=== PATIENT | female | born 1995 | race Caucasian/White ===

== ENCOUNTER 2021-10-15 14:41 | Emergency (ER) | payer SELFPAY ==
[~2021-10-15] VITALS: Ht 154.9 cm; Wt 51.3 kg
[2021-10-15 14:44] VITALS: BP 142/76
[2021-10-15] MEDS ORDERED: NACL 0.9% 1,000 ML IV ONE ×2 (14:55→16:20)
[2021-10-15] MEDS ORDERED: ONDANSETRON 4 MG/2 ML VIAL IVP ONE (14:55)
[2021-10-15] MEDS ORDERED: KETOROLAC 15 MG/ML VIAL IVP ONE (14:55)
[2021-10-15 15:15] LABS: BASOPHILS % (AUTO) 0.2 % (0.0-2.0); EOSINOPHILS % (AUTO) 0.2 % (0.0-4.0); HEMATOCRIT 42.3 % (36-48); HEMOGLOBIN 14.7 g/dL (12.0-16.0); LYMPHOCYTES # (AUTO) 0.8 K/uL (2.5-16.5); MEAN CORPUSCULAR HEMOGLOBIN 31 pg (27-31); MEAN CORPUSCULAR HGB CONC 35 g/dL (33-37); MEAN CORPUSCULAR VOLUME 88.4 fL (80-94); MONOCYTES # (AUTO) 0.4 K/uL (0.8-1.0); MONOCYTES % (AUTO) 4.3 % (1.7-9.3); NEUTROPHILS % (AUTO) 87.3 % (42.2-75.2); PLATELET COUNT (AUTO) 322 K/uL (140-450); RED BLOOD CELL COUNT(AUTO) 4.79 MIL/uL (4.20-5.40); RED CELL DISTRIBUTION WIDTH 13.4 % (11.6-13.7); WHITE BLOOD COUNT (AUTO) 10.3 K/uL (4.8-10.8)
--- NOTE | 2021-10-15 15:15 | NUR ---
Labs drawn handed to CPT Anyi
--- NOTE | 2021-10-15 15:15 | NUR ---
PATIENT UNABLE TO PROVIDE URINE SAMPLE FOR HCG TEST, TORADOL HELD AT THIS TIME.
--- NOTE | 2021-10-15 15:22 | NUR ---
25 y/o female BIBA from home with c/o abd pain with nausea and vomiting. Patient stated "that vomiting started this morning after she smoked meth and had 2 glasses of wine." Patient states "its her first time doing meth and wants to know if it was laced." Medical History: PTSD NKDA Medication: zofran 4mg odt (en route)
[2021-10-15 15:30] LABS: ALBUMIN 4.9 g/dL (3.4-5.0); ANION GAP 22.3 (8-16); CARBON DIOXIDE 21.4 mmol/L (21-32); CREATININE 0.8 mg/dL (0.6-1.3); POTASSIUM 3.7 mmol/L (3.5-5.1); TOTAL BILIRUBIN 0.8 mg/dL (0.0-1.0)
[2021-10-15] MEDS ORDERED: MORPHINE SULFATE 4 MG/ML SYR IVP ONE (15:40)
--- NOTE | 2021-10-15 15:40 | NUR ---
25/F BIBA TO ED WITH C/O ABDOMINAL PAIN, NAUSEA AND VOMITING SINCE LAST NIGHT. PATIENT ADMITS TO USING METH AND CONSUMING 2 GLASSES OF WINE PRIOR TO PAIN BEGINNING. EMS REPORTS GIVING ZOFRAN PRIOR TO ARRIVAL TO ED WITH MILD RELIEF. PATIENT DENIES CP, SOB, COUGH, FEVERS OR URINARY SYMPTOMS.
--- NOTE | 2021-10-15 16:00 | NUR ---
PATIENT STATES STILL UNABLE TO PROVIDE URINE, DR. VARELA AWARE
[2021-10-15] MEDS ORDERED: HALOPERIDOL IM 5 MG/ML VIAL IVP ONE (16:20)
[2021-10-15] MEDS ORDERED: HALOPERIDOL IM 5 MG/ML VIAL IM ONE (16:30)
[2021-10-15] MEDS ORDERED: ONDA-188 PO (17:22)
[2021-10-15] MEDS ORDERED: METR-520 PO (17:22)
--- NOTE | 2021-10-15 17:43 | NUR ---
Patient was road tested. Patient is able to walk with steady gait without assistance.
--- NOTE | 2021-10-15 17:55 | NUR ---
Offered patient bus pass but she declined. Patient is using phone to call her dad and sister for a ride.
[2021-10-15 18:01] VITALS: BP 109/85
--- NOTE | 2021-10-15 18:01 | NUR ---
Patient discharged with v/s stable. Written and verbal after care instructions given. Patient alert, oriented and verbalized understanding of instructions. Ambulatory with steady gait. All questions addressed prior to discharge. ID band removed. Patient advised to follow up with PMD. Rx of Flagyl and Zofran given. Opportunity to ask questions provided and answered.
--- NOTE | 2021-10-15 18:02 | NUR ---
The patient's care was reviewed and supervised by Amie Moe RN.
== END 2021-10-15 18:01 | disposition home or self-care (01) ==
LOC: MED 14:41
DX: N76.0 Acute vaginitis (principal); B96.89 Other specified bacterial agents as the cause of diseases classified elsewhere; F10.129 Alcohol abuse with intoxication, unspecified; F15.129 Other stimulant abuse with intoxication, unspecified; R11.2 Nausea with vomiting, unspecified; E86.0 Dehydration; Z79.2 Long term (current) use of antibiotics; Z79.899 Other long term (current) drug therapy
CPT/HCPCS: 36415; 80053; 83690; 85025; 96361; 96372; 96374; 96375; 99284; J1630; J2270; J2405; J7030; J1885

== ENCOUNTER 2022-01-21 21:41 | Inpatient (IN) | payer MEDICAID ==
[~2022-01-21] VITALS: Ht 154.9 cm; Wt 46.7 kg
[~2022-01-21 21:41] MED LIST: METR-520 PO; ONDA-188 PO
[2022-01-21 21:58] VITALS: BP 106/71
--- NOTE | 2022-01-21 22:05 | NUR ---
TO LOBBY FOLLOWING TRIAGE
[2022-01-21] MEDS ORDERED: NACL 0.9% 1,000 ML IV SCH (23:30)
[2022-01-21] MEDS ORDERED: PANTOPRAZOLE 40 MG INJ VIAL IVP ONE (23:30)
[2022-01-21] MEDS ORDERED: KETOROLAC 30 MG/ML VIAL IVP ONE (23:30)
[2022-01-21] MEDS ORDERED: ONDANSETRON 4 MG/2 ML VIAL IVP ONE (23:30)
[2022-01-21 23:50] LABS: BASOPHILS # (AUTO) 0.1 K/uL (0.00-0.22); BASOPHILS % (AUTO) 0.8 % (0.0-2.0); EOSINOPHILS # (AUTO) 0.1 K/uL (0-0.4); EOSINOPHILS % (AUTO) 0.7 % (0.0-4.0); HEMATOCRIT 40.5 % (36-48); HEMOGLOBIN 13.6 g/dL (12.0-16.0); LYMPHOCYTES # (AUTO) 1.2 K/uL (2.5-16.5); LYMPHOCYTES % (AUTO) 13.6 % (20.5-51.1); MEAN CORPUSCULAR HEMOGLOBIN 30 pg (27-31); MEAN CORPUSCULAR HGB CONC 34 g/dL (33-37); MEAN CORPUSCULAR VOLUME 88.3 fL (80-94); MONOCYTES # (AUTO) 0.3 K/uL (0.8-1.0); MONOCYTES % (AUTO) 3.7 % (1.7-9.3); NEUTROPHILS # (AUTO) 7.1 K/uL (1.8-7.7); NEUTROPHILS % (AUTO) 81.2 % (42.2-75.2); PLATELET COUNT (AUTO) 264 K/uL (140-450); RED BLOOD CELL COUNT(AUTO) 4.58 MIL/uL (4.20-5.40); RED CELL DISTRIBUTION WIDTH 12.5 % (11.6-13.7); WHITE BLOOD COUNT (AUTO) 8.8 K/uL (4.8-10.8)
[2022-01-22 00:23] LABS: ALBUMIN 4.8 g/dL (3.4-5.0); ANION GAP 16.1 (8-16); CARBON DIOXIDE 27.2 mmol/L (21-32); CREATININE 0.8 mg/dL (0.6-1.3); POTASSIUM 4.3 mmol/L (3.5-5.1); TOTAL BILIRUBIN 0.9 mg/dL (0.0-1.0)
[2022-01-22] MEDS ORDERED: IBUPROFEN 400 MG TAB PO ONE (01:50)
[2022-01-22] MEDS ORDERED: PANTOPRAZOLE 40 MG TABEC PO ONE (01:50)
--- NOTE | 2022-01-22 02:13 | NUR ---
LAZARO AMBULATED TO THE AND BACK TO BED 9
[2022-01-22] MEDS ORDERED: ATA25 PO (02:26)
[2022-01-22] MEDS ORDERED: SUCR1TAB35 PO (02:26)
[2022-01-22] MEDS ORDERED: CEPH500C16 PO (02:26)
[2022-01-22] MEDS ORDERED: METO-485 PO (02:26)
[2022-01-22] MEDS ORDERED: FAMO-368 PO (02:26)
[2022-01-22] MEDS ORDERED: ONDA-188 PO (02:26)
[2022-01-22] MEDS ORDERED: OMEP20EC11 PO (02:26)
--- NOTE | 2022-01-22 02:27 | NUR ---
26 yo/f presents to ED w c/o epigastric and lower abdominal pain 9/10 non-rad, constant x3 weeks, +n/v, headache, dizzyness, and blurry vision. Pt reports she was rcently seen at [facility] and recommended to see pcp for endoscopy referal but cannot wait d/t the n/v. pt denies any fevers, chills, diarrhea, blood in emesis or other symptoms. pmh: acute gastritis, chronic gerd, acid reflux, anxiety, complex ptsd allergies: denies
[2022-01-22] MEDS ORDERED: ONDANSETRON 4 MG/2 ML VIAL IVP ONE ×2 (02:35)
[2022-01-22] MEDS ORDERED: PANTOPRAZOLE 40 MG INJ VIAL IVP ONE (02:35)
[2022-01-22] MEDS ORDERED: NACL 0.9% 1,000 ML IV ONE (02:35)
--- NOTE | 2022-01-22 02:44 | NUR ---
IV INITIATED. 20G RIGHT AC, ORDERS CARRIED OUT.
--- NOTE | 2022-01-22 03:32 | NUR ---
CISCO COLLECTED AND HANDED TO LAB
--- NOTE | 2022-01-22 03:51 | NUR ---
headache, + abdominal pain 8.5/10, and reports nausea and vomiting has improved. pt requesting sandhich, pt on clear liquid diet messaged. awaiting reponse.
[2022-01-22] MEDS: NACL 0.9% 1,000 ML IV SCH ×5 (04:06→22:35)
--- NOTE | 2022-01-22 04:56 | NUR ---
per md ochoa. pt to be kept on clear liquid diet.
--- NOTE | 2022-01-22 04:58 | NUR ---
pt c.o ongoing epigatrsic pain and headache, requesting pain medication. md elizabeth made aware. awaiting response.
[2022-01-22] MEDS ORDERED: DOCUSATE SODIUM 100 MG GELCAP PO PRN (05:55)
[2022-01-22] MEDS ORDERED: MORPHINE SULFATE 2 MG/ML SYR IVP PRN ×2 (05:55→11:45)
[2022-01-22] MEDS ORDERED: ACETAMINOPHEN 325 MG TAB PO PRN (05:55)
[2022-01-22] MEDS ORDERED: ONDANSETRON 4 MG/2 ML VIAL IM/IVP PRN (05:55)
[2022-01-22] MEDS ORDERED: HYDROcodone/APAP 7.5/325 MG 1 TAB PO PRN (05:55)
[2022-01-22] MEDS ORDERED: ZOLPIDEM 5 MG TAB PO PRN (05:55)
[2022-01-22] MEDS ORDERED: guaiFENesin DM 200/20 MG-10 ML 10 ML UDC PO PRN (05:55)
--- NOTE | 2022-01-22 06:17 | NUR ---
pt ambulatory to bathroom w steady gait.
--- NOTE | 2022-01-22 06:19 | NUR ---
pt has not had any more n/v. pt just has ongoing pain. new pain medication orders in.
--- NOTE | 2022-01-22 06:40 | NUR ---
new order by md padilla for ns at 60ml/hr, rate changed from 125ml/hr to 60ml/hr.
--- NOTE | 2022-01-22 06:43 | NUR ---
pt reports epigastric pain improved alot, will continue to monitor.
--- NOTE | 2022-01-22 07:17 | NUR ---
Pt report given to eleanor salvador. Transfer of care at this time.
--- NOTE | 2022-01-22 07:45 | NUR ---
Patient will be admitted to care of Dr Medel. Admited to MS. Will go to room 106A. Belongings list completed. Report to Joanne.
--- NOTE | 2022-01-22 08:20 | NUR ---
RECEIVED REPORT FROM ER, RN. PT A/O X4. ABLE TO MAKE NEEDS KNOWN. NO SOB OR RESPIRATORY DISTRESS. ON RA. IV TO SL. CLEAR LIQUID DIET. PT ORIENTED TO ROOM. SAFETY MEASURES IN PLACE. NEEDS ALL MET AT THIS TIME. SAFETY MEASURES IN PLACE.
[2022-01-22] MEDS: PANTOPRAZOLE 40 MG INJ VIAL IVP SCH (09:21)
[2022-01-22 10:37] LABS: BASOPHILS % (AUTO) 0.3 % (0.0-2.0); EOSINOPHILS % (AUTO) 0.7 % (0.0-4.0); HEMATOCRIT 33.2 % (36-48); HEMOGLOBIN 11.3 g/dL (12.0-16.0); LYMPHOCYTES # (AUTO) 1.8 K/uL (2.5-16.5); LYMPHOCYTES % (AUTO) 29.7 % (20.5-51.1); MEAN CORPUSCULAR HEMOGLOBIN 30 pg (27-31); MEAN CORPUSCULAR HGB CONC 34 g/dL (33-37); MEAN CORPUSCULAR VOLUME 88.4 fL (80-94); MONOCYTES # (AUTO) 0.5 K/uL (0.8-1.0); MONOCYTES % (AUTO) 7.5 % (1.7-9.3); NEUTROPHILS # (AUTO) 3.8 K/uL (1.8-7.7); NEUTROPHILS % (AUTO) 61.8 % (42.2-75.2); PLATELET COUNT (AUTO) 197 K/uL (140-450); RED BLOOD CELL COUNT(AUTO) 3.75 MIL/uL (4.20-5.40); RED CELL DISTRIBUTION WIDTH 12.5 % (11.6-13.7); WHITE BLOOD COUNT (AUTO) 6.1 K/uL (4.8-10.8)
[2022-01-22] MEDS ORDERED: METOCLOPRAMIDE 10 MG/2 ML INJ VIAL IVP PRN (10:55)
[2022-01-22 11:01] LABS: ANION GAP 13.4 (8-16); CARBON DIOXIDE 25.8 mmol/L (21-32); CREATININE 0.9 mg/dL (0.6-1.3); POTASSIUM 4.2 mmol/L (3.5-5.1)
[2022-01-22] MEDS ORDERED: DOPPLER MC ONE (14:17)
[2022-01-22 14:30] VITALS: BP 116/76
--- NOTE | 2022-01-22 14:51 | NUR ---
PATIENT HAS BEEN SCREENED AND CATEGORIZED HIGH NUTRITION RISK. PATIENT WILL BE SEEN WITHIN 1-2 DAYS OF ADMISSION. / REFERRAL RECEIVED FOR NAUSEA OVER THREE DAYS [address]
[2022-01-22 17:10] VITALS: BP 98/66
[2022-01-22 20:00] VITALS: BP 107/63
--- NOTE | 2022-01-22 22:33 | NUR ---
PT COMPLAINTS OF PAIN ON ABDOMINAL AREA OF 8/10. PAIN MEDICATION ADMINISTERED ORDERED.
--- NOTE | 2022-01-22 22:36 | NUR ---
PT COMPLAINTS OF ACID REFLUX AND FEELS NAUSEATED. REGLAN ADMINISTERED ORDERED.
--- NOTE | 2022-01-22 23:33 | NUR ---
PT ASLEEP AND RELAX.
[2022-01-23] MEDS: NACL 0.9% 1,000 ML IV SCH (03:10)
[2022-01-23 07:18] LABS: BASOPHILS % (AUTO) 0.1 % (0.0-2.0); EOSINOPHILS # (AUTO) 0.1 K/uL (0-0.4); HEMATOCRIT 30.9 % (36-48); HEMOGLOBIN 10.7 g/dL (12.0-16.0); LYMPHOCYTES # (AUTO) 1.5 K/uL (2.5-16.5); LYMPHOCYTES % (AUTO) 28.8 % (20.5-51.1); MEAN CORPUSCULAR HEMOGLOBIN 30 pg (27-31); MEAN CORPUSCULAR HGB CONC 35 g/dL (33-37); MEAN CORPUSCULAR VOLUME 86.9 fL (80-94); MONOCYTES # (AUTO) 0.3 K/uL (0.8-1.0); MONOCYTES % (AUTO) 6.5 % (1.7-9.3); NEUTROPHILS # (AUTO) 3.3 K/uL (1.8-7.7); NEUTROPHILS % (AUTO) 63.6 % (42.2-75.2); PLATELET COUNT (AUTO) 195 K/uL (140-450); RED BLOOD CELL COUNT(AUTO) 3.56 MIL/uL (4.20-5.40); RED CELL DISTRIBUTION WIDTH 12.3 % (11.6-13.7); WHITE BLOOD COUNT (AUTO) 5.2 K/uL (4.8-10.8)
[2022-01-23 07:20] LABS: ANION GAP 14.4 (8-16); CARBON DIOXIDE 23.1 mmol/L (21-32); CREATININE 0.6 mg/dL (0.6-1.3); POTASSIUM 3.5 mmol/L (3.5-5.1)
--- NOTE | 2022-01-23 07:36 | NUR ---
ENDORSED TO DAY SHIFT NURSE FOR CONTINUITY OF PT CARE. PT IS ON STABLE CONDITION.
--- NOTE | 2022-01-23 07:37 | NUR ---
GOT REPORT FROM THE NIGHT NURSE , THE PATENT IN BED JODY PEREZ
[2022-01-23] MEDS: PANTOPRAZOLE 40 MG INJ VIAL IVP SCH (08:37)
[2022-01-23] MEDS ORDERED: HYDROXYZINE HYDROCHLORIDE 25 MG TAB PO SCH (10:52)
--- NOTE | 2022-01-23 11:08 | NUR ---
DC PLANNING: THE PATIENT ADMITTED WITH C/O ABDOMINAL PAIN AND N/V X 3 DAYS. H/O ETOH ABUSE, LAST SEEN AT [facility] 3 WEEKS AGO FOR W/U OF SAME COMPLAINT. CT ABD/PELVIS NEGATIVE, ADMITTED FOR PERSISTENT VOMITING. ON REGLAN, PROTONIX, IVF'S, ORDER FOR GI CONSULT. PATIENT VSS, ON A CLEAR LIQUID DIET, TOLERATING 25%. PATIENT CONTINUES TO C/O NAUSEA AND GERD, PENDING GI CONSULT FOR CLEARANCE AND/OR RECOMMENDATIONS. DC PLAN IS FOR PATIENT TO RETURN HOME WHEN MEDICALLY STABLE, CM WILL FOLLOW. Addendum: 01/24/22 at 1108 by Keyona Torres CM DC PLANNING: CM SPOKE WITH THE PATIENT AT BEDSIDE AND CONFIRMED HER ADDRESS AND PHONE NUMBER. 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 THE PATIENT STATES THAT HER RENT IS BEING PAID BY [employer] AND THAT SHE HAS TWO MORE MONTHS OF COVERAGE. HER PARENTS LIVE IN [place] AND [facility]PECT[facility]. THE PATIENT STATES SHE IS INACTIVE AT HOME AND GETS UP TO THE BATHROOM AND KITCHEN ONLY. HAS NO PMD AND STATES THAT SHE IS UNABLE TO TOLERATE WATER AND IVF'S BECAUSE THEY HAVE CALCIUM CARBONATE AND SODIUM BICARBONATE. STATES SHE HAS LOST 15 LBS RECENTLY AND IS WAITING FOR AN AUTHORIZATION FOR AN EGD. SHE ALSO STATES THAT SHE HAS PTSD AND ANXIETY BUT HAS NOT BEEN TREATED FOR THIS OR SEEN SOMEONE SHE IS NOT ABLE TO TOLERATE THE MEDICATIONS THAT WOULD BE PRESCRIBED. THE PATIENT IS AWARE THAT WE ARE WAITING FOR A TELEPSYCH CONFERENCE AND WOULD LIKE THEIR RECOMMENDATIONS FOR MEDICATION MANAGEMENT. CM WILL FOLLOW.
--- NOTE | 2022-01-23 13:17 | NUR ---
PT HAS BEEN COMPLAINING THAT THE WATER SHE DRINKS AND HIGH SODIUM IN THE IV FLUID, ALSO REFUSED THE PRESCRIBED MED, AND THE PSC CONSULT. THE IV STOPPED AND SHE COMPLAINED OF IV SITE PAIN TOOK OUT THE LINE AND SHE SAYS THE AT HER ARM HEARTS WELL SO WANT TO WAIT AND TRY LATER BUT WHEN OFFERED SHE SAYS SHE WANTS THE BLOOD PRESSURE TAKEN AND SHE CAN NOT BREATH YET HER 02 SATURATION IS 99% IN ROOM THEA. NOTIFIED [id number]
[2022-01-23 13:44] VITALS: BP 113/71
--- NOTE | 2022-01-23 15:24 | NUR ---
01/23/22 RD INITIAL ASSESSMENT COMPLETED PLEASE REFER TO NUTRITION ASSESSMENT UNDER CARE ACTIVITY FOR ESTIMATED NUTRITIONAL NEEDS. 1. CONTINUE REGULAR DIET PER MD ORDER -MONITOR PO INTAKE AND GI SYMPTOMS 2. RECOMMEND ENSURE CLEAR TID FOR NUTRITION SUPPORT 3. RD TO FOLLOW-UP 2-3 DAYS, HIGH RISK [address]
[2022-01-23 17:40] VITALS: BP 113/68
--- NOTE | 2022-01-23 18:48 | NUR ---
ATTEMPT MADE TO ASK IF SHE ALLOW IV TO START BUT PATIENT STILL REFUSED.[id number]
--- NOTE | 2022-01-23 19:30 | NUR ---
received bedside report from day rn. Pt observed resting in bed quietly denies any complaints. Pt is AAox4. amb able to make needs known. respirations are equal and unlabored on room air. skin is warm dry and intact. no iv access at this time pt refusing insertion MD aware. per report pt refused medications today. has pending psych eval for tomorrow. POC reviewed with pt. will continue to monitor.
[2022-01-23 20:00] VITALS: BP 105/50
--- NOTE | 2022-01-23 20:00 | NUR ---
PT APPEARS TO BE ASLEEP PT LAYING IN BED WITH EYES CLOSED CHEST RISE AND FALL NOTED. PT EASILY AROUSABLE TO NAME. PT C/C ABD PAIN AND DENIES NAUSEA. EDUCATED PT ON NEED FOR IV PT REFUSING AT THIS TIME. POC REVIEWED WITH PT. CALL LIGHT IS WITHIN REACH. WILL CONTINUE TO MONITOR.
--- NOTE | 2022-01-23 22:04 | NUR ---
ROUNDS MADE. PT APPEARS TO BE ASLEEP. CHEST RISE AND FALL NOTED. WILL CONTINUE TO MONITOR.
--- NOTE | 2022-01-24 00:06 | NUR ---
ROUNDS MADE. PT APPEARS TO BE ASLEEP WITH EYES CLOSED. CHEST RISE AND FALL NOTED. WILL CONTINUE TO MONITOR.
--- NOTE | 2022-01-24 02:00 | NUR ---
PT RESTING IN BED USING CELLPHONE. CALL LIGHT IS WITHIN REACH. WILL CONTINUE TO MONITOR.
[2022-01-24 04:00] VITALS: BP 99/75
--- NOTE | 2022-01-24 04:00 | NUR ---
VITAL SIGNS ARE STABLE. ALL NEEDS MET.
[2022-01-24 06:53] LABS: ANION GAP 16.5 (8-16); CARBON DIOXIDE 24.2 mmol/L (21-32); CREATININE 0.7 mg/dL (0.6-1.3); POTASSIUM 3.7 mmol/L (3.5-5.1)
[2022-01-24 06:56] LABS: BASOPHILS % (AUTO) 0.3 % (0.0-2.0); EOSINOPHILS % (AUTO) 0.6 % (0.0-4.0); HEMOGLOBIN 11.7 g/dL (12.0-16.0); LYMPHOCYTES # (AUTO) 1.2 K/uL (2.5-16.5); LYMPHOCYTES % (AUTO) 19.5 % (20.5-51.1); MEAN CORPUSCULAR HEMOGLOBIN 30 pg (27-31); MEAN CORPUSCULAR HGB CONC 34 g/dL (33-37); MEAN CORPUSCULAR VOLUME 87.4 fL (80-94); MONOCYTES # (AUTO) 0.4 K/uL (0.8-1.0); MONOCYTES % (AUTO) 5.8 % (1.7-9.3); NEUTROPHILS # (AUTO) 4.7 K/uL (1.8-7.7); NEUTROPHILS % (AUTO) 73.8 % (42.2-75.2); PLATELET COUNT (AUTO) 209 K/uL (140-450); RED BLOOD CELL COUNT(AUTO) 3.89 MIL/uL (4.20-5.40); RED CELL DISTRIBUTION WIDTH 12.3 % (11.6-13.7); WHITE BLOOD COUNT (AUTO) 6.4 K/uL (4.8-10.8)
--- NOTE | 2022-01-24 07:25 | NUR ---
SBAR REPORT RECEIVED FROM NIGHT RN, ALL CARES ASSUMED. PT RESTING, BED IN LOW, LOCKED POSITION. CALL LIGHT WITHIN REACH.
--- NOTE | 2022-01-24 07:38 | NUR ---
BEDSIDE REPORT GIVEN TO DAY RN. PT IN STABLE CONDITION.
[2022-01-24] MEDS: PANTOPRAZOLE 40 MG INJ VIAL IVP SCH ×3 (08:09→08:18)
[2022-01-24] MEDS: HYDROXYZINE HYDROCHLORIDE 25 MG TAB PO SCH ×3 (08:09→08:18)
[2022-01-24] MEDS ORDERED: SUCR1TAB35 PO (11:15)
[2022-01-24] MEDS ORDERED: METO-485 PO (11:15)
--- NOTE | 2022-01-24 12:30 | NUR ---
DISCHARGE PLANNING PATIENT IS A 26 YEAR OLD FEMALE ADMITTED TO THE [facility]/ED DUE TO COMPLAINTS OF ABDOMINAL PAIN,WITH NAUSEA AND EPISODES OF VOMITING FOR THE LAST 4 DAYS. PATIENT HAS HX OF GERD, GASTRITIS AND ANXIETY. SW MET WITH PATIENT AT BEDSIDE TO DISCUSS AND GATHER PATIENT'S COLLATERAL INFORMATION. PATIENT REPORTED LIVING AT HOME ALONE AND HAS POOR FAMILY SUPPORT. PATIENT REPORTED BEEN ACTIVE AND INDEPENDENT AT HOME, PATIENT REPORTED NOT HAVING ADVANCE DIRECTIVES AND WAS NOT INTERESTED ON GETTING INFORMATION PACKET PROVIDED BY SW AT THE TIME OF VISIT. PATIENT REPORTED NOT HAVING OR NEEDING DME AND NOT HAVING ANY ISSUES WITH GETTING OR TAKING ANY MEDICATIONS. STATED "THEY DO NOT WORK ON ME ANYWAY SO I DO NOT TAKE THEM" SW EXPLAINED TO PATIENT THE NEED TO FOLLOW UP WITH AN APPOINTMENT WITHIN 5-7 DAYS WITH HER PCP AFTER DC, PATIENT AGREED AND DECLINED FOR SW TO MAKE HER FOLLOW UP APPOINTMENT; AFTER SHE DISCHARGES FROM [facility]. PATIENT STATED THAT SHE WILL BE MAKING HER OWN APPOINMENT AND SHE WILL NEED AN UBER FOR TRANSPORTATION BACK HOME WHEN SHE IS READY FOR DISCHARGE. SW WILL FOLLOW UP WITH PATIENT NEEDED.
[2022-01-24] MEDS ORDERED: METOCLOPRAMIDE 10 MG TAB PO PRN (13:15)
[2022-01-24] MEDS ORDERED: PANTOPRAZOLE 40 MG TABEC PO SCH (13:16)
[2022-01-24 14:16] VITALS: BP 109/70
--- NOTE | 2022-01-24 14:45 | NUR ---
PT DISCHARGED HOME. PT STABLE. AMBULATED TO WHEELCHAIR. NO IV ACCESS AT TIME OF DISCHARGE. PT VERBALIZES UNDERSTANDING OF DISCHARGE INSTRUCTIONS. PT HAS ALL BELONGINGS AND HOME MEDICATIONS. PT AWAITING UBER WITH SANDIE GREER.
--- NOTE | 2022-01-25 07:59 | NUR ---
WOUND CONSULT NOT DONE. PT. DISCHARGED.
== END 2022-01-24 15:10 | disposition home or self-care (01) | DRG 241 ==
LOC: MED 21:41 → MMU 01-22 03:11 → MTU 01-22 05:13
PROVIDERS: ADMIT Family Medicine; ATTEND Family Medicine
DX: K29.70 Gastritis, unspecified, without bleeding (principal); F10.10 Alcohol abuse, uncomplicated; F41.9 Anxiety disorder, unspecified; Z20.822 Contact with and (suspected) exposure to COVID-19; K21.9 Gastro-esophageal reflux disease without esophagitis; F43.10 Post-traumatic stress disorder, unspecified; Y90.9 Presence of alcohol in blood, level not specified; Z79.899 Other long term (current) drug therapy
CPT/HCPCS: 36415; 80048; 80053; 83036; 83690; 85025; 86677; 87081; 96361; 96374; 96375; 99285; C9113; J2270; J2405; J2765; J7030; J8597

== ENCOUNTER 2022-04-29 14:09 | Emergency (ER) | payer MEDICAID, OTHER ==
[~2022-04-29] VITALS: Ht 157.5 cm; Wt 74.8 kg
[~2022-04-29 14:09] MED LIST changes: +ATA25 PO; +FAMO-368 PO; +METO-485 PO; -METR-520 PO; -ONDA-188 PO; +SUCR1TAB35 PO
[2022-04-29 14:15] VITALS: BP 118/89
--- NOTE | 2022-04-29 14:37 | NUR ---
pt in bathroom defecating
[2022-04-29] MEDS ORDERED: ONDANSETRON 4 MG/2 ML VIAL IVP ONE (14:40)
[2022-04-29] MEDS ORDERED: NACL 0.9% 1,000 ML IV ONE (14:40)
[2022-04-29] MEDS ORDERED: KETOROLAC 30 MG/ML VIAL IVP ONE (14:40)
--- NOTE | 2022-04-29 14:41 | NUR ---
PT AMBULATED TO ROOM 7
--- NOTE | 2022-04-29 14:45 | NUR ---
26YO FEMALE PT BIB FROM [facility] C/O ABDOMINAL PAIN, DIZZINESS AND NAUSEA [id number]. STATES BEING SEEN AT [place] YESTERDAY AND BEING TOLD SHE HAD "WORMS AND RECTAL BLEEDING". D/C WITH RX GOLYTELY DUE TO CONSTIPATION. STATES TAKING RX PRIOR TO ARRIVAL AND HAD BM ON ARRIVAL. REPORTS VOMIT X3 TODAY WITH BLOOD NOTED. ABDOMEN NON TENDER OR DISTENDED. PT AAOX4, . RSPIRATIONS EVEN AND UNLABORED. MILD PALENESS NOTED , SKIN DRY. HOB POSITIONED PER COMFORT. PMH: HPYLORI, PINWORMS ALLERGIES: TETRACYCLINE
[2022-04-29 14:56] LABS: BASOPHILS % (AUTO) 0.3 % (0.0-2.0); EOSINOPHILS % (AUTO) 0.1 % (0.0-4.0); HEMATOCRIT 36.4 % (36-48); HEMOGLOBIN 12.6 g/dL (12.0-16.0); LYMPHOCYTES # (AUTO) 0.9 K/uL (2.5-16.5); LYMPHOCYTES % (AUTO) 20.7 % (20.5-51.1); MEAN CORPUSCULAR HEMOGLOBIN 30 pg (27-31); MEAN CORPUSCULAR HGB CONC 35 g/dL (33-37); MEAN CORPUSCULAR VOLUME 87.5 fL (80-94); MONOCYTES # (AUTO) 0.2 K/uL (0.8-1.0); MONOCYTES % (AUTO) 4.8 % (1.7-9.3); NEUTROPHILS # (AUTO) 3.2 K/uL (1.8-7.7); NEUTROPHILS % (AUTO) 74.1 % (42.2-75.2); PLATELET COUNT (AUTO) 201 K/uL (140-450); RED BLOOD CELL COUNT(AUTO) 4.17 MIL/uL (4.20-5.40); RED CELL DISTRIBUTION WIDTH 12.7 % (11.6-13.7); WHITE BLOOD COUNT (AUTO) 4.4 K/uL (4.8-10.8)
[2022-04-29 15:18] LABS: BILIRUBIN,URINE NEGATIVE (NEGATIVE); BLOOD, URINE 3+ (NEGATIVE); COLOR,URINE YELLOW (YELLOW); LEUKOCYTE ESTERASE ,URINE NEGATIVE (NEGATIVE); NITRITE, URINE NEGATIVE (NEGATIVE); PH,URINE 7.5 (5.0-9.0); UGLUCOSE NEGATIVE (NEGATIVE)
[2022-04-29 15:28] LABS: ALBUMIN 4.1 g/dL (3.4-5.0); ANION GAP 15.2 (8-16); CARBON DIOXIDE 28.4 mmol/L (21-32); POTASSIUM 3.6 mmol/L (3.5-5.1); TOTAL BILIRUBIN 1.2 mg/dL (0.0-1.0)
[2022-04-29 15:34] LABS: APPEARANCE,URINE CLEAR (CLEAR)
[2022-04-29 16:10] LABS: RBC,URINE 20-50 /HPF (0-5); WBC,URINE NONE SEEN /HPF (0-5)
[2022-04-29 16:20] LABS: CREATININE 0.7 mg/dL (0.6-1.3)
[2022-04-29] MEDS ORDERED: ALBE200T13 PO ×2 (16:34→17:12)
[2022-04-29] MEDS ORDERED: ONDA-188 PO ×2 (16:34→17:12)
[2022-04-29] MEDS ORDERED: SIME125T38 PO ×2 (16:34→17:12)
[2022-04-29] MEDS ORDERED: FAMO-92 PO ×2 (16:34→17:12)
--- NOTE | 2022-04-29 17:10 | NUR ---
IV removed, catheter intact and site benign. Applied folded 4x4 gauze and tape to stop bleeding.
[2022-04-29 17:15] VITALS: BP 121/81
--- NOTE | 2022-04-29 17:15 | NUR ---
Patient discharged with v/s stable. Written and verbal after care instructions FOR GASTRITIS given and explained. Patient alert, oriented and verbalized understanding of instructions. Ambulatory with steady gait. All questions addressed prior to discharge. ID band removed. Patient advised to follow up with PMD. Rx of PEPCID, ZOFRAN, [place] AND ALBENDAZOLE given. Opportunity to ask questions provided and answered. SAURAV ALEJANDRO PROVIDED
--- NOTE | 2022-04-29 17:16 | NUR ---
Chart checked and completed. The patient's care was reviewed and supervised by Alvina Sanodval RN.
== END 2022-04-29 17:15 | disposition home or self-care (01) ==
LOC: MED 14:09
DX: K29.70 Gastritis, unspecified, without bleeding (principal); K21.9 Gastro-esophageal reflux disease without esophagitis; Z88.8 Allergy status to other drugs, medicaments and biological substances
CPT/HCPCS: 36415; 80053; 81001; 81025; 85025; 87086; 96361; 96374; 96375; 99285; J1885; J2405; J7030

== ENCOUNTER 2022-05-02 04:05 | Emergency (ER) | payer OTHER ==
[~2022-05-02 04:05] MED LIST changes: +ALBE200T13 PO; +FAMO-92 PO; +ONDA-188 PO; +SIME125T38 PO
--- NOTE | 2022-05-02 04:15 | NUR ---
Patient BIB by BLS, Place on bed 7. (Please see down time sheets)
--- NOTE | 2022-05-02 04:19 | NUR ---
Dr. Segovia examining patient.
== END 2022-05-02 04:25 | disposition left against medical advice (07) ==
LOC: MED 04:05
DX: G89.29 Other chronic pain (principal); R10.9 Unspecified abdominal pain; R11.2 Nausea with vomiting, unspecified; K21.9 Gastro-esophageal reflux disease without esophagitis; Z79.899 Other long term (current) drug therapy; Z88.1 Allergy status to other antibiotic agents
CPT/HCPCS: 99283